=== PATIENT | male | born 1975 | race Caucasian/White ===

== ENCOUNTER 2016-12-01 09:36 | Day surgery (SDC) | payer OTHER ==
[~2016-12-01 09:36] MED LIST: Lactated Ringers 1,000 ML IV SCH
--- NOTE | 2016-12-01 10:37 | PCM.PREANE ---
Preanesthetic Assessment - Anesthesia/Transfusion/Family Hx Anesthesia History: Prior Anesthesia Without Reaction Family History of Anesthesia Reaction: No Transfusion History: No Prior Transfusion(s) Intubation History: Unknown - Review of Systems General: No Symptoms Pulmonary: No Symptoms Cardiovascular: No Symptoms Gastrointestinal: No Symptoms Neurological: No Symptoms Other: Reports: None - Physical Assessment Height: 1.8 m Weight: 92.986 kg ASA Class: 2 Mental Status: Alert & Oriented x3 Airway Class: Mallampati = 2 Dentition: Reports: Normal Dentition (braces upper and lower) Thyro-Mental Finger Breadths: 3 Mouth Opening Finger Breadths: 2 ROM/Head Extension: Full Lungs: Clear to Auscultation, Normal Respiratory Effort Cardiovascular: Regular Rate, Regular Rhythm - Allergies Allergies/Adverse Reactions: Allergies Allergy/AdvReac Type Severity Reaction Status Date / Time No Known Allergies Allergy Verified 11/29/16 12:01 - Blood Blood Available: No - Anesthesia Plan Pre-Op Medication Ordered: None - Acknowledgements Anesthesia Type Planned: General Anesthesia Pt an Appropriate Candidate for the Planned Anesthesia: Yes Alternatives and Risks of Anesthesia Discussed w Pt/Guardian: Yes Pt/Guardian Understands and Agrees with Anesthesia Plan: Yes PreAnesthesia Questionnaire HEENT History: Reports: Sinusitis (chronic tonsilittis and nasal congestion) Gastrointestinal History: Reports: GERD Musculoskeletal History: Reports: Fracture Other Musculoskeletal History: right hand - Past Surgical History Musculoskeletal Surgical History: Reports: ORIF Other Musculoskeletal Surgeries/Procedures:: right hand, hardware removed - SUBSTANCE USE Smoking Status *Q: Never Smoker Recreational Drug Use History: No - HOME MEDS Home Medications: Home Meds Esomeprazole [NexIUM] 40 mg PO DAILY 11/29/16 [History] - CURRENT (IN HOUSE) MEDS Current Meds: Current Medications Lactated Ringer's (Ringers, Lactated) 1,000 mls @ 125 mls/hr IV ASDIRECTED RADHA
[2016-12-01] MEDS ORDERED: Rocuronium 10 MG/ML 10 ML Syringe ONE (10:55)
[2016-12-01] MEDS ORDERED: Midazolam 1 MG/ML 2 ML SDV ONE (10:55)
[2016-12-01] MEDS ORDERED: Propofol 200 MG/20 ML SDV ONE (10:55)
[2016-12-01] MEDS ORDERED: Neostigmine Methylsulfate 1 MG/ML 5 ML Syringe ONE (10:55)
[2016-12-01] MEDS ORDERED: Ondansetron 4 MG/2 ML SDV ONE (10:55)
[2016-12-01] MEDS ORDERED: fentaNYL 100 MCG/2 ML SDV ONE (10:55)
--- NOTE | 2016-12-01 13:19 | PCM.HP ---
H&P History of Present Illness - General Date of Service: 12/01/16 Admit Problem/Dx: Admission Diagnosis/Problem Admission Diagnosis/Problem Deviated nasal septum Source of Information: Patient - History of Present Illness Initial Comments - Free Text/Narative: Nasal obstruction - 1 year R > L; with assoc rhinorrhea; also c/o spring / summer allergies Was seen in office on 10/15/2016 After examination - decision fpr surgery was made - nasal septoplasty Is being admitted today for surgery NO changes since last seen For futher details -pls refer to clinic note form 10/15/2016 - Related Data Allergies/Adverse Reactions: Allergies Allergy/AdvReac Type Severity Reaction Status Date / Time No Known Allergies Allergy Verified 11/29/16 12:01 Home Medications: Home Meds Esomeprazole [NexIUM] 40 mg PO DAILY 11/29/16 [History] Past Medical History HEENT History: Reports: Sinusitis (chronic tonsilittis and nasal congestion) Gastrointestinal History: Reports: GERD Musculoskeletal History: Reports: Fracture Other Musculoskeletal History: right hand Endocrine/Metabolic History: Reports: Obesity/BMI 30+ - Past Surgical History Musculoskeletal Surgical History: Reports: ORIF Other Musculoskeletal Surgeries/Procedures:: right hand, hardware removed Social & Family History - Tobacco Use Smoking Status *Q: Never Smoker - Caffeine Use Caffeine Use: Reports: Coffee - Recreational Drug Use Recreational Drug Use: No Drug Use in Last 12 Months: No H&P Review of Systems - Review of Systems: Review Of Systems: ROS reveals no pertinent complaints other than HPI. Exam - Exam Exam: See Below - Vital Signs Weight: 92.986 kg - Exam General: Alert, Oriented, Cooperative HEENT: Other Lungs: Clear to Auscultation, Normal Respiratory Effort Cardiovascular: Regular Rate, Regular Rhythm Physical Exam Comments:: Right deviated nasal septum; overlying mucosal crusting present *Q Meaningful Use (ADM) - VTE *Q VTE Criteria *Q: - Stroke *Q Stroke Criteria *Q: - AMI *Q AMI Criteria *Q: - Problem List (1) Nasal septal deviation SNOMED Code(s): 812563141 ICD Code: J34.2 - DEVIATED NASAL SEPTUM Status: Acute Current Visit: Yes (2) Nasal obstruction SNOMED Code(s): 186205463, 191893876 ICD Code: J34.89 - OTHER SPECIFIED DISORDERS OF NOSE AND NASAL SINUSES Status: Acute Current Visit: Yes Problem List Initiated/Reviewed/Updated: Yes Orders Last 24hrs: Active Orders 24 hr Category Date Time Status Patient Status [ADT] Routine ADT 11/30/16 17:12 Active Verify Patient Consent Obtain [RC] ASDIRECTED Care 11/30/16 17:12 Active Lactated Ringers [Ringers, Lactated] 1,000 ml Med 12/01/16 06:00 Active IV ASDIRECTED Resuscitation Status Routine Resus Stat 11/30/16 17:12 Ordered Medication Orders Lactated Ringer's (Ringers, Lactated) 1,000 mls @ 125 mls/hr IV ASDIRECTED [facility] Assessment/Plan Comment:: - For nasal septoplasty GA today - Consent obtained; risk and benefits discussed -TO remain NPO - Anesthesia to evaluate
[2016-12-01] MEDS ORDERED: Lidocaine 1% 20 ML MDV ONE (13:48)
[2016-12-01] MEDS ORDERED: Oxymetazoline 0.05% Nasal Spray 15 ML Bottle ONE (13:48)
[2016-12-01] MEDS ORDERED: Lidocaine 2% with EPINEPHrine 1:100,000 20 ML MDV ONE (13:48)
--- NOTE | 2016-12-01 13:48 | PCM.OPNOTE ---
- General Post-Op/Procedure Note Condition: Good Free Text/Narrative:: Diagnosis: Nasal obstruction, deviated nasal septum Procedure: Nasal Septoplasty [CPT 61224] Surgeon: Lisa Hatfield MD Anesthesia: GA Anesthesiologist: John Oscar Date of procedure: 12/01/2016 Indications:Nasal obstruction, deviated nasal septum Findings: Right deviation of cartilaginous septum, horizontal fracture along floor of septal cartilage running up to the nasal spine; dry and crusted mucosa overlying the right septal deviation. Operation Details: An informed consent was obtained. A time out was performed and the patient was brought back to the operating room. Gen. anesthesia was administered with an endotracheal tube. Bilateral nasal cavities were packed with oxymetazoline 0.05 % soaked cottonoid pledgets. Pharyngeal pack as placed.The patient was then prepped and draped in a standard fashion. The pledgets were then removed. Nasal septum was infiltrated with 2% lidocaine 1 : 100, 000 epinephrine in a standard fashion-a total of 4.5 mls was used. A left sided Levi incision was performed. A left sided mucoperichondrial flap was elevated-dissection was commenced with 2 mm osteotome and further carried out with combination of rj and [place] elevators. Posteriorly the flap was continued as a muco periosteal flap. A vertial chondrototmy was made just behind the mucosal incision. Right-sided mucoperichondrial and mucoperiosteal flap were then elevated. A posterior chondrotomy was performed. Using a Rodgers morataya scissor - lower part of perpendicular plate of ethmoid was excised and removed with a Ghaz[place] forcep. Vomer was also removed. A thin strip of cartilage below the fracture line was removed using a septal knife coming upto the nasal spine after freeing this from the maxillary crest. Mucoperiosteal flaps along the floor of nasal cavity, overlying the maxillary crest were elevated bilaterally. Using a 4 mm Osteotome and hammer a thin strip of bone was removed. Subsequent to this the nasal septum was positioned towards the midline. The mucoperichondrial flap was sutured with 4.0 plain gut on Mike needle. Bilateral Leblanc splints were inserted and held in place with 2.0 Prolene suture. Drip pad was applied. Pharyngeal pack was removed. This concluded the procedure and the patient was turned over to the anesthesiologist for recovery. Specimens: none IV fluids: 800 ml Blood loss: 5 ml Blood products: nil Disposition: PACU for recovery Follow up: In 1 week for removal of splints.
[2016-12-01] MEDS ORDERED: Acetaminophen 325 MG Tab PO PRN (14:14)
[2016-12-01] MEDS ORDERED: Ibuprofen 400 MG Tab PO PRN (14:14)
[2016-12-01] MEDS ORDERED: oxyCODONE 5 MG Tab PO PRN (14:14)
[2016-12-01] MEDS ORDERED: HYDROmorphone 2 MG/ML Syringe ONE (14:21)
[2016-12-01] MEDS ORDERED: Acetaminophen 1,000 MG in Premix Bag 1 BAG IV PRN (15:23)
--- NOTE | 2016-12-01 16:28 | PCM.POSTAN ---
POST ANESTHESIA ASSESSMENT - MENTAL STATUS Mental Status: Alert - RESPIRATORY Respiratory Status: Respiratory Rate WNL, Airway Patent, O2 Saturation Stable - CARDIOVASCULAR CV Status: Pulse Rate WNL, Blood Pressure Stable - GASTROINTESTINAL GI Status: No Symptoms - PAIN Pain Score: 0 - POST OP HYDRATION Hydration Status: Adequate & Stable
--- NOTE | 2016-12-01 16:37 | PCM48HPAN ---
Post Anesthesia Note - EVALUATION WITHIN 48HRS OF ANESTHETIC Vital Signs in Normal Range: Yes Patient Participated in Evaluation: Yes Respiratory Function Stable: Yes Airway Patent: Yes Cardiovascular Function Stable: Yes Hydration Status Stable: Yes Pain Control Satisfactory: Yes Nausea and Vomiting Control Satisfactory: Yes Mental Status Recovered: Yes
[2016-12-01 17:05] VITALS: BP 122/79
== END 2016-12-01 16:57 | disposition home or self-care (01) ==
LOC: MW.SDS 09:36
PROVIDERS: ATTEND Otolaryngology
PROC: 09RM07Z Replacement of Nasal Septum with Autologous Tissue Substitute, Open Approach (ICD-10-PCS; principal; 2016-12-01)
DX: J34.2 Deviated nasal septum (principal); Z79.899 Other long term (current) drug therapy; J32.9 Chronic sinusitis, unspecified; J35.01 Chronic tonsillitis; K21.9 Gastro-esophageal reflux disease without esophagitis; E66.9 Obesity, unspecified; Z68.30 Body mass index [BMI] 30.0-30.9, adult; Z98.890 Other specified postprocedural states
CPT/HCPCS: 30520; A9270; J1170; J2250; J2405; J3010; 00160; J2704